=== PATIENT | female | born 1965 | race Caucasian/White ===

== ENCOUNTER 2016-07-25 10:40 | Emergency (ER) | payer BC ==
[~2016-07-25] VITALS: Ht 177.8 cm; Wt 116.8 kg
[~2016-07-25 10:40] MED LIST: HYDROCODON-ACE1 EAC7 PO; HYDROCODON-ACE1 EAC8 PO; LIPITOR20 MG PO; LISINOPRIL10 MG PO; METFORMIN HCL500 MG PO; MOBIC15 MG PO; MOTRIN800 MG PO; ULTRAM50 MG PO; VICTOZA 2-0.6 MG/0.1; ZOFRAN ODT8 MG PO; ZOFRAN4 MG PO
[2016-07-25 11:10] LABS: ADD MIUA? YES; BILIRUBIN SMALL; BLOOD NEGATIVE; COLOR DK YELLOW ((YELLOW)); GLUCOSE (STRIP) NEGATIVE; KETONES TRACE; LEUKOCYTES NEGATIVE; NITRITE NEGATIVE; PH, URINE 5.5 (5-8); PROTEIN (STRIP) TRACE; SPECIFIC GRAVITY 1.039 (1.000-1.030); UROBILINOGEN 0.2 MG/DL (0.2-1.0)
[2016-07-25 11:38] LABS: BACTERIA 1+; CASTS NONE SEEN /LPF; CRYSTALS NONE SEEN; EPITHELIAL CELLS 2+; MUCUS NONE SEEN; RED BLOOD CELLS NONE SEEN /HPF (0-5); UCUL ADDED? NO; WHITE BLOOD CELLS NONE SEEN /HPF (0-5)
[2016-07-25] MEDS ORDERED: FLEXERIL10 MG PO (12:12)
[2016-07-25] MEDS ORDERED: NAPROSYN500 MG PO (12:12)
[2016-07-25] MEDS ORDERED: PERCOCET 5/31 TABLET PO (12:12)
[2016-07-25 12:23] VITALS: BP 136/67
== END 2016-07-25 12:26 | disposition home or self-care (01) ==
LOC: EME 10:40
PROVIDERS: Nurse Practitioner Family
DX: M54.5 Low back pain (principal); M62.838 Other muscle spasm; E11.9 Type 2 diabetes mellitus without complications
CPT/HCPCS: 72100; 81003; 99281; 99284; J1885

== ENCOUNTER 2016-10-27 15:05 | Emergency (ER) | payer OTHER, BC ==
[~2016-10-27] VITALS: Ht 177.8 cm; Wt 142.0 kg
[~2016-10-27 15:05] MED LIST changes: +FLEXERIL10 MG PO; +NAPROSYN500 MG PO; +PERCOCET 5/31 TABLET PO
[2016-10-27 15:41] LABS: EOSINOPHIL (%) 0 % (0-5); HEMATOCRIT 40.6 % (36.0-46.0); IMMATURE GRANULOCYTE (%) 0.4 % (0.0-0.7); INSTRUMENT ABS NEUTROPHIL CT 7.1 K/uL; LYMPHOCYTE COUNT 3.3 K/uL (1.0-2.8); MCH 30.6 PG (29.0-34.0); MCHC 33.5 G/DL (30.0-36.0); MCV 91.4 FL (83-99); MEAN PLAT.VOLUME 9.9 uM^3 (9.5-12.4); MONOCYTE (%) 3.7 % (3-12); MONOCYTE COUNT 0.4 K/uL (0-0.8); NEUTROPHIL (%) 65.3 % (45-76); NEUTROPHIL COUNT 7.1 K/uL (1.8-6.4); PLATELET COUNT 276 K/uL (156-360); RBC DIS.WIDTH-CV 12.7 % (11.8-14.6); RBC DIS.WIDTH-SD 42.4 % (39-53); RED BLOOD COUNT 4.44 M/uL (3.80-5.20); WHITE BLOOD COUNT 10.9 K/uL (4.1-10.2)
[2016-10-27 15:54] LABS: CHLORIDE 105 mEq/L (99-109); POTASSIUM 4.2 mEq/L (3.7-5.4); SODIUM 139 mEq/L (136-147)
[2016-10-27 15:56] LABS: GLUCOSE 196 mg/dL (70-99)
[2016-10-27 15:57] LABS: ANION GAP 14 MEQ/L (2-14)
[2016-10-27 15:58] LABS: TOTAL BILIRUBIN 0.3 mg/dL (0.0-1.0)
[2016-10-27 15:59] LABS: ALKALINE PHOSPHATASE 81 IU/L (3-129)
[2016-10-27 16:00] LABS: GFR ESTIMATE (CALCULATED) > 59 mL/min/
[2016-10-27 16:01] LABS: UREA NITROGEN (BUN) 19 mg/dL (9-23)
[2016-10-27] MEDS ORDERED: PERCOCET 5/31 TABLET PO (19:05)
[2016-10-27 19:32] VITALS: BP 106/68
== END 2016-10-27 19:36 | disposition home or self-care (01) ==
LOC: EME 15:05 → TRA 15:05
PROVIDERS: Emergency Medicine
DX: S30.1XXA Contusion of abdominal wall, initial encounter (principal); S60.221A Contusion of right hand, initial encounter; V49.40XA Driver injured in collision with unspecified motor vehicles in traffic accident, initial encounter; Y92.410 Unspecified street and highway as the place of occurrence of the external cause; E11.9 Type 2 diabetes mellitus without complications; I10 Essential (primary) hypertension; Z79.84 Long term (current) use of oral hypoglycemic drugs
CPT/HCPCS: 73130; 74177; 80053; 85025; 93005; 99281; 99285; J2270; J7030

== ENCOUNTER 2016-11-03 10:21 | Emergency (ER) | payer OTHER, BC ==
[~2016-11-03] VITALS: Ht 177.8 cm; Wt 118.3 kg
[2016-11-03 11:33] LABS: HEMATOCRIT 36.2 % (36.0-46.0); MCHC 33.7 G/DL (30.0-36.0); MCV 91.9 FL (83-99); MEAN PLAT.VOLUME 9.6 uM^3 (9.5-12.4); PLATELET COUNT 286 K/uL (156-360); RBC DIS.WIDTH-CV 12.5 % (11.8-14.6); RED BLOOD COUNT 3.94 M/uL (3.80-5.20); WHITE BLOOD COUNT 6.5 K/uL (4.1-10.2)
[2016-11-03 11:41] LABS: CHLORIDE 106 mEq/L (99-109); SODIUM 140 mEq/L (136-147)
[2016-11-03 11:43] LABS: GLUCOSE 134 mg/dL (70-99)
[2016-11-03 11:45] LABS: ANION GAP 12 MEQ/L (2-14)
[2016-11-03 11:47] LABS: GFR ESTIMATE (CALCULATED) > 59 mL/min/
[2016-11-03 11:48] LABS: UREA NITROGEN (BUN) 16 mg/dL (9-23)
[2016-11-03] MEDS ORDERED: FLEXERIL10 MG PO (12:18)
[2016-11-03 12:51] VITALS: BP 154/67
== END 2016-11-03 12:53 | disposition home or self-care (01) ==
LOC: EME 10:21
PROVIDERS: Physician Assistant
DX: S20.01XD Contusion of right breast, subsequent encounter (principal); S30.1XXD Contusion of abdominal wall, subsequent encounter; R51 Headache; R42 Dizziness and giddiness; V43.52XD Car driver injured in collision with other type car in traffic accident, subsequent encounter; E11.9 Type 2 diabetes mellitus without complications; M79.7 Fibromyalgia; Z79.84 Long term (current) use of oral hypoglycemic drugs
CPT/HCPCS: 70450; 71250; 80048; 85027; 99281; 99283